=== PATIENT | male | born 1980 | race Caucasian/White ===

== ENCOUNTER 2017-09-21 20:08 | Emergency (ER) | payer OTHER ==
[~2017-09-21] VITALS: Ht 170.2 cm; Wt 72.6 kg
== END 2017-09-21 22:27 | disposition home or self-care (01) ==
LOC: ED 20:08
DX: S59.912A Unspecified injury of left forearm, initial encounter (principal); V49.9XXA Car occupant (driver) (passenger) injured in unspecified traffic accident, initial encounter; W22.11XA Striking against or struck by driver side automobile airbag, initial encounter
CPT/HCPCS: 99282

== ENCOUNTER 2022-06-16 19:26 | Emergency (ER) | payer OTHER ==
[~2022-06-16] VITALS: Ht 167.6 cm; Wt 78.5 kg
[2022-06-16] MEDS ORDERED: TERBINAFINE HC250 MG PO (21:20)
[2022-06-16] MEDS ORDERED: FLOMAX0.4 MG PO (23:40)
[2022-06-16] MEDS ORDERED: KETOROLAC TROME10 MG PO (23:40)
[2022-06-16] MEDS ORDERED: PERCOCET 5-3251 EACH PO (23:40)
[2022-06-16] MEDS ORDERED: ONDANSETRON ODT8 MG PO (23:40)
== END 2022-06-17 00:01 | disposition home or self-care (01) ==
LOC: ED 19:26
DX: N13.2 Hydronephrosis with renal and ureteral calculous obstruction (principal); M51.36 Other intervertebral disc degeneration, lumbar region
CPT/HCPCS: 36415; 72131; 74176; 80053; 81001; 85025; 96374; 96375; 96376; 99284-25; A9270; J1170; J1885; J7121